=== PATIENT | female | born 1980 | race Caucasian/White ===

== ENCOUNTER → 2020-01-31 | Outpatient (CLI) | payer SELFPAY ==
--- NOTE | 2020-01-31 11:24 | Diagnostic Imaging Report ---
INDICATION: Chronic hepatitis C. TECHNIQUE: Multiple real-time wagner scale sonographic images of the abdomen. CORRELATION STUDY: None. FINDINGS: LIVER: Normal echotexture within the visualized portions of the liver. There is normal, hepatopedal direction of flow within the main portal vein. Liver enlarged, 20 cm. GALLBLADDER: Cholecystectomy. COMMON BILE DUCT: Mildly dilated even for post cholecystectomy changes at 12 mm. PANCREAS: Limited in visualization. The visualized portions appearing unremarkable. SPLEEN: Unremarkable. ABDOMINAL AORTA: Unremarkable. INFERIOR VENA CAVA: Limited in visualization. RIGHT KIDNEY: 11.6 x 6.0 x 4.4 cm. Unremarkable. LEFT KIDNEY: 11.5 x 5.6 x 5.4 cm. Unremarkable. OTHER: None. IMPRESSION: 1. Hepatomegaly. 2. Cholecystectomy. Common bile duct is mildly dilated, slightly greater than allowed for post cholecystectomy dilatation. Dictated by: Dictated on workstation # [id number]
== END ==
LOC: RAD 08:43
PROVIDERS: ATTEND Pediatrics
DX: B18.2 Chronic viral hepatitis C (principal); K83.8 Other specified diseases of biliary tract; Z90.49 Acquired absence of other specified parts of digestive tract
CPT/HCPCS: 76700